=== PATIENT | female | born 1990 | race Caucasian/White ===

== ENCOUNTER 2019-12-09 00:08 | Emergency (ER) | payer SELFPAY ==
[~2019-12-09] VITALS: Ht 167.6 cm; Wt 63.5 kg
[2019-12-09 00:11] VITALS: Ht 167.6 cm; Wt 63.5 kg
[2019-12-09 01:10] VITALS: BP 123/78
== END 2019-12-09 02:11 | disposition home or self-care (01) ==
LOC: ED 00:08
DX: T45.0X5A Adverse effect of antiallergic and antiemetic drugs, initial encounter (principal); Z88.2 Allergy status to sulfonamides; Y92.89 Other specified places as the place of occurrence of the external cause
CPT/HCPCS: J0171; J1200; J2930; J3490